=== PATIENT | female | born 1990 | race Caucasian/White ===

== ENCOUNTER → 2022-01-13 | Outpatient (REF) | payer OTHER, MEDICAID | LOC: M SFHCWAGY 10:03 | PROVIDERS: ATTEND Obstetrics & Gynecology | DX: O30.033 Twin pregnancy, monochorionic/diamniotic, third trimester (principal); Z3A.00 Weeks of gestation of pregnancy not specified ==

== ENCOUNTER → 2022-01-19 | Outpatient (CLI) | payer OTHER | LOC: M WHC 15:09 | PROVIDERS: ATTEND Specialist | DX: O30.033 Twin pregnancy, monochorionic/diamniotic, third trimester (principal); Z3A.36 36 weeks gestation of pregnancy ==

== ENCOUNTER 2022-01-23 07:50 | Inpatient (IN) | payer OTHER ==
[~2022-01-23] VITALS: Ht 154.9 cm; Wt 90.1 kg
[2022-01-23] VITALS (26 sets, daily range): BP systolic 100–181; BP diastolic 54–102
[2022-01-23] MEDS ORDERED: LR 1,000 ML IV SCH ×2 (08:55→09:50)
[2022-01-23 09:13] LABS: HEMATOCRIT 35.8 % (36.0-47.0); HEMOGLOBIN 12.1 g/dl (12.0-15.5); MEAN CORPUSCULAR HEMOGLOBIN 30.9 pg (27.0-33.0); MEAN CORPUSCULAR HGB CONC 33.8 g/dl (32.0-36.5); MEAN CORPUSCULAR VOLUME 91.6 fl (80.0-96.0); PLATELET COUNT, AUTOMATED 145 10^3/uL (150-450); RED BLOOD COUNT 3.91 10^6/uL (4.00-5.40); WHITE BLOOD COUNT 8.3 10^3/uL (4.0-10.0)
[2022-01-23] MEDS ORDERED: CARBOPROST TROMETHAMINE 250 MCG/ML AMP IM PRN (09:50)
[2022-01-23] MEDS ORDERED: miSOPROStol 50MCG 1/2 TABLET PO ONE (09:50)
[2022-01-23] MEDS ORDERED: METHYLERGONOVINE MALEATE 0.2 MG/ML VIAL (J2210) IM PRN (09:50)
[2022-01-23] MEDS ORDERED: TRANEXAMIC ACID INJection 1,000 MG in NS 100 ML IV PRN (09:50)
[2022-01-23] MEDS ORDERED: OXYTOCIN DRIP 30 UNITS in IV 1 EA IV PRN ×4 (09:50)
[2022-01-23] MEDS ORDERED: LACTATED RINGER'S 1000 ML IV PRN ×2 (09:50→20:35)
[2022-01-23] MEDS ORDERED: PNV1TAB6 PO (10:03)
[2022-01-23] MEDS ORDERED: miSOPROStol 25MCG 1/4 TABLET PO ONE (15:10)
[2022-01-23 18:28] LABS: ALT/SGPT 61 U/L (12-78); BILIRUBIN,TOTAL 0.5 MG/DL (0.2-1.0); GLOMERULAR FILTRATION RATE > 60.0 (>60); LDH LACTATE DEHYDROGENASE 158 U/L (84-246); URIC ACID 6.5 MG/DL (2.6-6.0)
[2022-01-23] MEDS ORDERED: FENTANYL 2MCG/ML ROPIVACAINE 0.2% IN 0.9% NACL 100ML IVBAG As Ordered ONE (19:36)
[2022-01-23] MEDS ORDERED: NALOXONE INJ 0.4MG/1ML VIAL (J2310 PER 1MG) IV PRN (20:35)
[2022-01-23] MEDS ORDERED: EPIDURAL/PCA KEYS XX PRN (20:35)
[2022-01-23] MEDS ORDERED: EPIDURAL COMMENT XX SCH (20:35)
[2022-01-23] MEDS ORDERED: ePHEDrine SULFATE 25 MG/5 ML(5MG/ML) SYRINGE IV PRN (20:35)
[2022-01-23] MEDS ORDERED: ONDANSETRON 4MG/2ML VIAL IV PRN (20:35)
[2022-01-23] MEDS ORDERED: REFRIGERATOR IV KEYS XX PRN (20:35)
[2022-01-23] MEDS ORDERED: FENTANYL/ROPIVACAINE/NACL BAG 100 ML EPIDURAL SCH (20:35)
[2022-01-23] MEDS ORDERED: diphenhydrAMINE 50MG/ML VIAL (J1200) IV PRN (20:35)
[2022-01-23] MEDS ORDERED: OXYTOCIN DRIP 30 UNITS in IV 1 EA IV SCH (21:20)
[2022-01-24] VITALS (11 sets, daily range): BP systolic 116–140; BP diastolic 59–82
[2022-01-24] MEDS ORDERED: RHOGAM 300 MCG (1500 IU) INJ (J2790) IM SCH (01:45)
[2022-01-24] MEDS ORDERED: METHYLERGONOVINE MALEATE 0.2 MG TAB PO PRN (01:45)
[2022-01-24] MEDS ORDERED: DIBUCAINE 1% OINTMENT 30GM TOP PRN (01:45)
[2022-01-24] MEDS ORDERED: MEASLES,MUMPS,RUBELLA VACCINE INJ (MMR-II) (90707) SC SCH (01:45)
[2022-01-24] MEDS ORDERED: ACETAMINOPHEN 500 MG TAB PO PRN (01:45)
[2022-01-24] MEDS ORDERED: DOCUSATE SODIUM 100MG CAPSULE PO PRN (01:45)
[2022-01-24] MEDS ORDERED: IBUPROFEN 600MG TAB PO PRN (01:45)
[2022-01-24] MEDS ORDERED: ceFAZolin SOD 2 GM in IV 1 EA IV ONE (01:45)
[2022-01-24] MEDS: PRENATAL VITAMINS CHEWABLE TABLET PO SCH (08:01)
[2022-01-24 09:27] LABS: ALT/SGPT 83 U/L (12-78); BILIRUBIN,TOTAL 0.5 MG/DL (0.2-1.0); GLOMERULAR FILTRATION RATE > 60.0 (>60); LDH LACTATE DEHYDROGENASE 201 U/L (84-246); URIC ACID 6.7 MG/DL (2.6-6.0)
[2022-01-24 20:30] LABS: HEMATOCRIT 35.2 % (36.0-47.0); HEMOGLOBIN 11.9 g/dl (12.0-15.5); MEAN CORPUSCULAR HGB CONC 33.8 g/dl (32.0-36.5); MEAN CORPUSCULAR VOLUME 91.7 fl (80.0-96.0); PLATELET COUNT, AUTOMATED 156 10^3/uL (150-450); RED BLOOD COUNT 3.84 10^6/uL (4.00-5.40); WHITE BLOOD COUNT 11.2 10^3/uL (4.0-10.0)
[2022-01-24 21:01] LABS: ALT/SGPT 77 U/L (12-78); BILIRUBIN,TOTAL 0.2 MG/DL (0.2-1.0); BLOOD UREA NITROGEN 13 MG/DL (7-18); CALCIUM LEVEL 8.9 MG/DL (8.5-10.1); CARBON DIOXIDE LEVEL 24 MEQ/L (21-32); CHLORIDE LEVEL 112 MEQ/L (98-107); CREATININE FOR GFR 1.11 MG/DL (0.55-1.30); GLOMERULAR FILTRATION RATE > 60.0 (>60); GLUCOSE, FASTING 119 MG/DL (70-100); POTASSIUM SERUM 4.3 MEQ/L (3.5-5.1); SODIUM LEVEL 142 MEQ/L (136-145); TOTAL PROTEIN 5.6 GM/DL (6.4-8.2)
[2022-01-24 22:20] LABS: INR 0.86; PROTHROMBIN TIME 12.1 SECONDS (12.7-14.5)
[2022-01-24 22:21] LABS: PARTIAL THROMBOPLASTIN TIME 28.3 SECONDS (25.9-37.0)
[2022-01-25 02:00] VITALS: BP 142/81
[2022-01-25 06:00] VITALS: BP 134/80
[2022-01-25 06:39] LABS: HEMATOCRIT 33.2 % (36.0-47.0); HEMOGLOBIN 10.9 g/dl (12.0-15.5); MEAN CORPUSCULAR HGB CONC 32.8 g/dl (32.0-36.5); MEAN CORPUSCULAR VOLUME 94.3 fl (80.0-96.0); PLATELET COUNT, AUTOMATED 124 10^3/uL (150-450); RED BLOOD COUNT 3.52 10^6/uL (4.00-5.40); WHITE BLOOD COUNT 8.8 10^3/uL (4.0-10.0)
[2022-01-25 07:07] LABS: ALBUMIN 1.8 GM/DL (3.2-5.2); ALT/SGPT 62 U/L (12-78); BILIRUBIN,TOTAL 0.2 MG/DL (0.2-1.0); BLOOD UREA NITROGEN 14 MG/DL (7-18); CALCIUM LEVEL 8.8 MG/DL (8.5-10.1); CARBON DIOXIDE LEVEL 24 MEQ/L (21-32); CHLORIDE LEVEL 115 MEQ/L (98-107); CREATININE FOR GFR 0.94 MG/DL (0.55-1.30); GLOMERULAR FILTRATION RATE > 60.0 (>60); GLUCOSE, FASTING 78 MG/DL (70-100); POTASSIUM SERUM 4.4 MEQ/L (3.5-5.1); SODIUM LEVEL 149 MEQ/L (136-145); TOTAL PROTEIN 5.1 GM/DL (6.4-8.2)
[2022-01-25] MEDS: PRENATAL VITAMINS CHEWABLE TABLET PO SCH (08:12)
[2022-01-25 10:05] VITALS: BP 156/90
[2022-01-25] MEDS: SIMETHICONE 80MG CHEW TAB PO PRN ×2 (11:22→17:43)
[2022-01-25 12:25] LABS: HEPATITIS B CORE ANTIBODY IGM NEGATIVE (NEGATIVE); HEPATITIS B SURFACE ANTIGEN NEGATIVE (NEGATIVE); HEPATITIS C VIRUS ABY INDEX 0.2 INDEX (<0.8)
[2022-01-25] MEDS: KETOROLAC 30 MG/ML 1ML VIAL IV SCH ×2 (13:49→19:57)
[2022-01-25 14:00] VITALS: BP 157/84
[2022-01-25 18:00] VITALS: BP 142/74
[2022-01-25 21:47] VITALS: BP 118/76
[2022-01-26] MEDS: SIMETHICONE 80MG CHEW TAB PO PRN (01:02)
[2022-01-26 02:02] VITALS: BP 153/82
[2022-01-26] MEDS: KETOROLAC 30 MG/ML 1ML VIAL IV SCH ×2 (03:00→12:00)
[2022-01-26 06:13] VITALS: BP 143/70
[2022-01-26] MEDS: PRENATAL VITAMINS CHEWABLE TABLET PO SCH (08:40)
== END 2022-01-26 14:40 | disposition home or self-care (01) | DRG 560 ==
LOC: M LDI 07:50 → M OBS 01-24 04:47
PROVIDERS: ADMIT Obstetrics & Gynecology; ATTEND Obstetrics & Gynecology
PROC: 3E033VJ Introduction of Other Hormone into Peripheral Vein, Percutaneous Approach (ICD-10-PCS; 2022-01-23)
PROC: 3E0DXGC Introduction of Other Therapeutic Substance into Mouth and Pharynx, External Approach (ICD-10-PCS; 2022-01-23)
PROC: 10E0XZZ Delivery of Products of Conception, External Approach (ICD-10-PCS; principal; 2022-01-24)
PROC: 10907ZC Drainage of Amniotic Fluid, Therapeutic from Products of Conception, Via Natural or Artificial Opening (ICD-10-PCS; 2022-01-24)
DX: O30.033 Twin pregnancy, monochorionic/diamniotic, third trimester (principal); Z37.2 Twins, both liveborn; E66.9 Obesity, unspecified; Z3A.37 37 weeks gestation of pregnancy; O99.214 Obesity complicating childbirth; O32.6XX0 Maternal care for compound presentation, not applicable or unspecified

== ENCOUNTER 2024-03-27 11:20 | Emergency (ER) | payer OTHER ==
[~2024-03-27] VITALS: Ht 154.9 cm; Wt 70.7 kg
[~2024-03-27 11:20] MED LIST: PNV1TAB6 PO
[2024-03-27 12:10] LABS: BASO % 0.4 % (0.0-1.0); EOS # 0.1 10^3/uL (0.0-0.5); EOS % 2.9 % (0.0-3.0); HEMOGLOBIN 12.6 g/dl (12.0-15.5); LYMPH # 0.9 10^3/uL (1.5-5.0); LYMPH % 18.3 % (24.0-44.0); MEAN CORPUSCULAR HGB CONC 34.1 g/dl (32.0-36.5); MEAN CORPUSCULAR VOLUME 91.1 fl (80.0-96.0); MONO # 0.4 10^3/uL (0.0-0.8); MONO % 7.8 % (2.0-8.0); NEUTROPHILS # 3.4 10^3/uL (1.5-8.5); NEUTROPHILS % 70.4 % (36.0-66.0); PLATELET COUNT, AUTOMATED 224 10^3/uL (150-450); RED BLOOD COUNT 4.06 10^6/uL (4.00-5.40); WHITE BLOOD COUNT 4.9 10^3/uL (4.0-10.0)
[2024-03-27 12:36] LABS: LIPASE 40 U/L (12-53)
[2024-03-27 12:38] LABS: ALBUMIN 3.1 G/DL (3.2-5.2); ALKALINE PHOSPHATASE 78 U/L (46-116); ALT/SGPT 13 U/L (7.0-40); AST/SGOT 14 U/L (<34); BILIRUBIN,DIRECT 0.2 MG/DL (<0.4); BILIRUBIN,TOTAL 0.4 MG/DL (0.3-1.2); BLOOD UREA NITROGEN 11 MG/DL (9-23); CALCIUM LEVEL 8.1 MG/DL (8.5-10.1); CARBON DIOXIDE LEVEL 25 MMOL/L (20-31); CHLORIDE LEVEL 108 MMOL/L (98-107); CREATININE FOR GFR 0.75 MG/DL (0.55-1.30); GLOMERULAR FILTRATION RATE > 60.0 (>60); GLUCOSE, FASTING 98 MG/DL (60-100); SODIUM LEVEL 140 MMOL/L (136-145); TOTAL PROTEIN 6.4 G/DL (5.7-8.2)
[2024-03-27 12:39] LABS: HCG, SERUM QUALITATIVE NEGATIVE (NEGATIVE)
[2024-03-27] MEDS: MAALOX 30 ML SUSP *UDC PO ONE (14:17)
[2024-03-27] MEDS ORDERED: ISOVUE-370 76% 100ML VIAL As Ordered ONE (14:41)
[2024-03-27] MEDS ORDERED: CIPR-249 PO (17:31)
[2024-03-27] MEDS ORDERED: MEDR4TAB PO (17:31)
[2024-03-27] MEDS ORDERED: METR-265 PO (17:31)
[2024-03-27] MEDS ORDERED: REGL5TAB2 PO (17:31)
[2024-03-27 17:36] VITALS: BP 128/80; TEMP 97.8; O2SAT 100
== END 2024-03-27 17:41 | disposition home or self-care (01) ==
LOC: M ED 11:20
DX: R10.11 Right upper quadrant pain (principal); K50.90 Crohn's disease, unspecified, without complications; Z88.8 Allergy status to other drugs, medicaments and biological substances; Z79.2 Long term (current) use of antibiotics; Z79.899 Other long term (current) drug therapy
CPT/HCPCS: 36415; 74177; 80048; 80076; 81001; 83605; 83690; 84703; 85025; 86140; 87086; 99283; Q9967